=== PATIENT | male | born 1965 | race Caucasian/White ===

== ENCOUNTER 2018-03-11 17:14 | Emergency (ER) | payer OTHER, BC ==
[2018-03-11 17:19] VITALS: BP 148/69; BMI 27.8
[2018-03-11 18:54] LABS: BASOPHILS # (AUTO) 0.1 X10^3/uL (0.0-0.1); BASOPHILS % (AUTO) 1.8 % (0.2-1.0); EOSINOPHILS # (AUTO) 0.1 x10^3/uL (0.0-0.2); EOSINOPHILS % (AUTO) 1.5 % (0.9-2.9); HEMATOCRIT 45.6 % (42.0-54.0); HEMOGLOBIN 16.1 g/dL (13.5-18.0); LYMPHOCYTES # (AUTO) 1.2 X10^3/uL (1.3-2.9); LYMPHOCYTES % (AUTO) 18.1 % (21.0-51.0); MEAN CORPUSCULAR HEMOGLOBIN 30.5 pg (27.0-34.0); MEAN CORPUSCULAR HGB CONC 35.3 g/dL (33.0-35.0); MEAN CORPUSCULAR VOLUME 86.3 fL (80.0-100.0); MEAN PLATELET VOLUME 8.4 fL (7.4-11.0); MONOCYTES # (AUTO) 0.6 x10^3/uL (0.3-0.8); MONOCYTES % (AUTO) 8.1 % (0.0-13.0); NEUTROPHILS # (AUTO) 4.8 x10^3/uL (2.2-4.8); NEUTROPHILS % (AUTO) 70.5 % (42.0-75.0); PLATELET COUNT 229 X10^3/uL (150.0-450.0); RED BLOOD COUNT 5.29 X10^6/uL (4.7-6.0); RED CELL DISTRIBUTION WIDTH 13.6 % (11.6-16.5); WHITE BLOOD COUNT 6.8 X10^3/uL (3.6-10.0)
[2018-03-11 18:57] LABS: BILIRUBIN,URINE NEGATIVE (NEGATIVE); BLOOD/HEMOGLOBIN,URINE NEGATIVE (NEGATIVE); GLUCOSE, URINE NEGATIVE (NEGATIVE); KETONES,URINE NEGATIVE (NEGATIVE); LEUKOCYTE ESTERASE ,URINE NEGATIVE (NEGATIVE); NITRITES,URINE NEGATIVE (NEGATIVE); PROTEIN,URINE NEGATIVE (NEGATIVE); UROBILINOGEN,URINE NORMAL (NORMAL)
--- NOTE | 2018-03-11 18:59 | RAD ---
History: Weakness and fatigue Study: PA and lateral chest Comparison: None Findings: The heart size is prominent status post sternotomy. There are intact pacemaker wire leads v ia the left subclavian vein. 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 The lungs are clear. There is no effusion. Impression: No evidence for acute cardiopulmonary disease Reported By:
[2018-03-11 19:10] LABS: BLOOD UREA NITROGEN 26 mg/dL (7-18); CALCIUM 9.4 mg/dL (8.5-10.1); CARBON DIOXIDE 28.8 mmol/L (21-32); CHLORIDE 104 mmol/L (98-107); COR NA(FOR HYPERGLY) 141 mmol/L (136-145); CREATININE 1.05 mg/dL (0.70-1.30); SODIUM 140 mmol/L (136-145); TROPONIN I < 0.02 ng/mL (0-1.5); eGFR BLACK RACES > 60 (>60); eGFR NON BLACK RACES > 60 (>60)
[2018-03-11 19:14] LABS: ALANINE AMINOTRANSFERASE 32 Units/L (12-78); ALBUMIN 4.6 g/dL (3.4-5.0); ALKALINE PHOSPHATASE 86 Units/L (46-116); ASPARTATE AMINO TRANSFERASE 22 Units/L (15-37); CKMB % 1.8 % (<4); CREATINE KINASE 102 Units/L (39-308); CREATINE KINASE MB 1.8 ng/mL (0-4.0); TOTAL PROTEIN 8.5 g/dL (6.4-8.2)
[2018-03-11 19:19] LABS: APPEARANCE,URINE CLEAR (CLEAR); COLOR,URINE YELLOW (YELLOW)
--- NOTE | 2018-03-11 20:36 | DR.DIZZY ---
HPI - Time seen Time seen: 20:15 - PCP Primary Care Physician: LIBBY - Complaint Chief Complaint Doctor Comments: Patient presents with complaint of fatique for two weeks. 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 Chief Complaint:: PT. STATES FOR ABOUT 2 WEEKS HE HAS FELT FATIGUED, "NERVOUS FEELING", AND DIZZY. HE HAD A HEART CATH 2 WEEKS AGO AND EVERYTHING WAS FINE. PT. ALSO HAD HIS PACEMAKER CHECKED THIS PAST SUNDAY AND IT WAS FINE. PT. DENIES CHEST PAIN OR SHORTNESS OF BREATH. - Source History Provided: Patient - Mode of Arrival Mode of Arrival: Ambulatory - Timing Onset of Chief Complaint: 02/25/18 - Context History of: None Stroke Symptoms: None - Severity Severity: Normal activity level - Modifying factors Worsens: Nothing - Associated signs and symptoms Associated Signs and Symptoms: Normal PMH - PMH Past Medical History: Yes Past Medical History: Coronary Artery Disease, Diabetes Past Surgical History: Yes Surgical History: Cholecystectomy Past Surgical History Comment: PACEMAKER, MECHANICAL AORTIC VALVE, RIGHT ACL SURGERY - Family History History of Family Medical Conditions: Yes Family Medical History: Diabetes Mellitus, MD, Coronary Artery Disease - Social History Does patient currently use any type of tobacco product: No Have you used tobacco products in the last 12 months: No Type of Tobacco Use: None Does any household member use tobacco: No Alcohol Use: None Do you use any recreational Drugs:: No Lives With: Spouse Lives Where: Home - infectious screening In the last 2 months have you had wt loss of >10#?: NO Have you had fever, night sweats or hemotysis?: No Have you traveled outside the country in the last 6 months?: No Isolation: Standard ROS - Review of Systems Eyes: No Symptoms Reported ENTM: No Symptoms Reported Respiratoy: No Symptoms Reported Cardiovascular: No Symptoms Reported Gastrointestinal/Abdominal: No Symptoms Reported Genitourinary: No Symptoms Reported Neurological: No Symptoms Reported Musculoskeletal: No Symptoms Reported Integumentary: No Symptoms Reported Hematologic/Lymphatic: No Symptoms Reported Endocrine: No Symptoms Reported Psychiatric: No Symptoms Reported All Other Systems: Reviewed and Negative PE - Vital Signs Vitals: Temperature 97.7 F Pulse Rate 65 Respiratory Rate 17 Blood Pressure 148/69 O2 Sat by Pulse Oximetry 95 - General Limitations: No Limitations General Appearance: Alert, In No Apparent Distress - Head Head Exam: Normal Inspection, Atraumatic - Eyes Eye exam: Normal Appearance, PERRL, EOMI Pupils: Regular, Round: Bilateral Anterior Chamber: Normal Inspection: Bilateral Posterior Chamber: Deferred: Bilateral - ENT ENT Exam: Normal Exam, Normal Oropharynx - Neck Neck Exam: Normal Inspection, Full ROM - Chest Chest Inspection: Normal Inspection - Respiratory Respiratory Exam: Normal Lung Sounds Bilat Respiratory Exam: Bilateral Clear to Auscultation - Cardiovascular Cardiovascular Exam: Regular Rate, Normal Rhythm - Abdominal Exam Abdominal Exam: Normal Inspection, Normal Bowel Sounds Abdominal Tenderness: negative: RUQ, RLQ, LUQ, LLQ, Epigastrium, Suprapubic, Diffuse, Mild, Moderate, Severe, Other - Rectal Rectal Exam: Deferred - Extremeties Extremities Exam: Normal Inspection, Full ROM - Back Back Exam: Normal Inspection, Full ROM - Neurologic Neurological Exam: Alert, Oriented X3, CN II-XII Intact Speech: Fluid Speech Cranial Nerve Exam: EOM Function (II, III, IV, ): Normal Cerebellar Function: Finger to Nose: Normal Motor Strength - RUE: 3/5 Upper Motor Neuron Exam: Dax Neglect: Normal Sensory Exam Upper Extremity: Light Touch: Normal Sensory Exam Lower Extremity: Light Touch: Normal - Psychiatric Psychiatric Exam: Normal Affect, Normal Mood - Skin Skin Exam: Warm, Dry, Intact Course - Reevaluation 1st: Unchanged ROR - Labs Reviewed Result Diagrams: 03/11/18 18:46 03/11/18 18:46 Laboratory: WBC 6.8 X10^3/uL (3.6-10.0) 03/11/18 18:46 RBC 5.29 X10^6/uL (4.7-6.0) 03/11/18 18:46 Hgb 16.1 g/dL (13.5-18.0) 03/11/18 18:46 Hct 45.6 % (42.0-54.0) 03/11/18 18:46 MCV 86.3 fL (80.0-100.0) 18 18:46 MCH 30.5 pg (27.0-34.0) 03/11/18 18:46 MCHC 35.3 g/dL (33.0-35.0) H 03/11/18 18:46 RDW 13.6 % (11.6-16.5) 03/11/18 18:46 Plt Count 229 X10^3/uL (150.0-450.0) 03/11/18 18:46 MPV 8.4 fL (7.4-11.0) 03/11/18 18:46 Neut % (Auto) 70.5 % (42.0-75.0) 03/11/18 18:46 Lymph % (Auto) 18.1 % (21.0-51.0) L 03/11/18 18:46 [place] % (Auto) 8.1 % (0.0-13.0) 03/11/18 18:46 Eos % (Auto) 1.5 % (0.9-2.9) 03/11/18 18:46 Baso % (Auto) 1.8 % (0.2-1.0) H 03/11/18 18:46 Neut # (Auto) 4.8 x10^3/uL (2.2-4.8) 03/11/18 18:46 Lymph # (Auto) 1.2 X10^3/uL (1.3-2.9) L 03/11/18 18:46 [place] # (Auto) 0.6 x10^3/uL (0.3-0.8) 03/11/18 18:46 Eos # (Auto) 0.1 x10^3/uL (0.0-0.2) 03/11/18 18:46 Baso # (Auto) 0.1 X10^3/uL (0.0-0.1) 03/11/18 18:46 Absolute Nucleated RBC 0.1 /100WBC 03/11/18 18:46 Sodium 140 mmol/L (136-145) 18 18:46 Corrected Sodium 141 mmol/L (136-145) 03/11/18 18:46 Potassium 4.2 mmol/L (3.5-5.1) 03/11/18 18:46 Chloride 104 mmol/L (98-107) 03/11/18 18:46 Carbon Dioxide 28.8 mmol/L (21-32) 03/11/18 18:46 BUN 26 mg/dL (7-18) H 03/11/18 18:46 Creatinine 1.05 mg/dL (0.70-1.30) 03/11/18 18:46 Est GFR (MDRD) Af Amer > 60 (>60) 03/11/18 18:46 Est GFR (MDRD) Non-Af > 60 (>60) 03/11/18 18:46 Glucose 142 mg/dL (65-99) H 03/11/18 18:46 Calcium 9.4 mg/dL (8.5-10.1) 03/11/18 18:46 Corrected Calcium TNP 03/11/18 18:46 Total Bilirubin 0.80 mg/dL (0.2-1.0) 03/11/18 18:46 AST 22 Units/L (15-37) 03/11/18 18:46 ALT 32 Units/L (12-78) 03/11/18 18:46 Alkaline Phosphatase 86 Units/L (46-116) 03/11/18 18:46 Creatine Kinase 102 Units/L (39-308) 03/11/18 18:46 CK-MB (CK-2) 1.8 ng/mL (0-4.0) 03/11/18 18:46 CK/CKMB % Calc 1.8 % (<4) 03/11/18 18:46 Troponin I < 0.02 ng/mL (0-1.5) 03/11/18 18:46 C-Reactive Protein 1.20 mg/L (0-3.0) 03/11/18 18:46 Total Protein 8.5 g/dL (6.4-8.2) H 03/11/18 18:46 Albumin 4.6 g/dL (3.4-5.0) 03/11/18 18:46 Globulin 3.9 g/dL (2.5-4.5) 03/11/18 18:46 Albumin/Globulin Ratio 1.2 Ratio (1.1-2.1) 03/11/18 18:46 Specimen Type Clean catch urine 03/11/18 18:42 Urine Color Yellow (YELLOW) 03/11/18 18:42 Urine Appearance Clear (CLEAR) 03/11/18 18:42 Urine pH 6.0 (5.0 - 8.0) 03/11/18 18:42 Ur Specific [place] 1.020 (1.000-1.030) 03/11/18 18:42 Urine Protein Negative (NEGATIVE) 03/11/18 18:42 Urine Glucose (UA) Negative (NEGATIVE) 03/11/18 18:42 Urine Ketones Negative (NEGATIVE) 03/11/18 18:42 Urine Occult Blood Negative (NEGATIVE) 03/11/18 18:42 Urine Nitrite Negative (NEGATIVE) 03/11/18 18:42 Urine Bilirubin Negative (NEGATIVE) 03/11/18 18:42 Urine Urobilinogen Normal (NORMAL) 03/11/18 18:42 Ur Leukocyte Esterase Negative (NEGATIVE) 03/11/18 18:42 - XRAY XRAY Interpreted by: Radiologist (Chest: Findings The heart size is prominent status post sternotomy. There are intact pacemaker wire leads via the left subclavian vein. 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 The lungs are clear. There is no effusion. Impression: No evidence for acute cardiopulmonary disease.) XRAY Findings: Clear chest - EKG Rate: 61 (A-V Dural-Paced rhythmn with some inhibition) - Diagnosis Discharge Problem: Weakness, Chronic malaise - Discharge Plan Condition: Stable - Follow ups/Referrals Follow ups/Referrals: VAISHNAVI SOUZA [Primary Care Provider] - 3 days - Instructions
== END 2018-03-11 21:04 | disposition home or self-care (01) ==
LOC: ER 17:26
DX: R53.1 Weakness (principal); R53.81 Other malaise
CPT/HCPCS: 36415; 71046; 80053; 81003; 82550; 82553; 84484; 85025; 86140; 87633; 93005; 93010; 99283; 99284